=== PATIENT | female | born 1940 | race Caucasian/White ===

== ENCOUNTER 2018-10-23 05:09 | Emergency (ER) | payer OTHER ==
[~2018-10-23] VITALS: Ht 149.9 cm; Wt 38.6 kg
[~2018-10-23 05:09] MED LIST: BUTALB-ACETAMI1 EACH PO; ESTR2 PO; PRAV20 PO
[2018-10-23 06:30] LABS: BASOPHILS ABSOLUTE AUTO 0.04 K/mm3 (0.00-0.23); BASOPHILS PERCENT AUTO 0 % (0-2); EOSINOPHILS ABSOLUTE AUTO 0.02 K/mm3 (0.00-0.68); EOSINOPHILS PERCENT AUTO 0 % (0-6); Hematocrit 42.4 % (33.0-51.0); IMMATURE GRAN ABSOLUTE AUTO 0.04 K/mm3 (0.00-0.10); IMMATURE GRAN PERCENT AUTO 0 % (0-1); LYMPHOCYTES ABSOLUTE AUTO 0.41 K/mm3 (0.84-5.20); LYMPHOCYTES PERCENT AUTO 4 % (21-46); MONOCYTES ABSOLUTE AUTO 0.81 K/mm3 (0.16-1.47); MONOCYTES PERCENT AUTO 8 % (4-13); Mean Corpuscular HGB 30.3 pg (26.0-34.0); Mean Corpuscular Volume 92 fL (80-100); NEUTROPHILS ABSOLUTE AUTO 8.31 K/mm3 (1.96-9.15); NEUTROPHILS PERCENT AUTO 86 % (41-73); RDW Coefficient Variation 15.8 % (11.7-14.2); RDW Standard Deviation 53.2 fL (35.1-46.3); Red Blood Cell Count 4.62 M/mm3 (3.80-5.20); White Blood Cell Count 9.63 K/mm3 (4.00-11.30)
[2018-10-23 06:31] LABS: Mean Platelet Volume 12.2 fL (9.1-12.4); Platelet Count 181 K/mm3 (150-400)
[2018-10-23 06:53] LABS: Alanine Aminotransfer (ALT/SGP 16 U/L (12-78); Albumin, Blood 3.2 g/dL (3.4-5.0); Albumin/Globulin Ratio 0.9 (0.8-1.8); Alk Phos 77 U/L (50-136); Anion Gap 7 mmol/L (6-16); Aspartate Aminotrans (AST/SGOT 25 U/L (12-37); Bilirubin, Total 0.4 mg/dL (0.1-1.0); Blood Urea Nitrogen 18 mg/dL (8-24); Bun/Creatinine Ratio 21.4 (12.0-20.0); CO2, Blood 28 mmol/L (21-32); Calcium, Blood 8.1 mg/dL (8.5-10.1); Chloride, Blood 102 mmol/L (98-108); Creatinine, Blood 0.84 mg/dL (0.40-1.00); Globulin, Blood 3.5 g/dL (2.2-4.0); Glomerular Filtration Rate >60 (60-); Glucose, Blood 115 mg/dL (70-99); Potassium, Blood 3.7 mmol/L (3.5-5.5); Sodium, Blood 137 mmol/L (136-145); Total Protein, Blood 6.7 g/dL (6.4-8.2)
== END 2018-10-23 09:16 | disposition home or self-care (01) ==
LOC: ER 05:09
PROVIDERS: Emergency Medicine
DX: S00.01XA Abrasion of scalp, initial encounter (principal); E86.0 Dehydration; J10.1 Influenza due to other identified influenza virus with other respiratory manifestations; W06.XXXA Fall from bed, initial encounter; I10 Essential (primary) hypertension; J45.909 Unspecified asthma, uncomplicated; Z88.2 Allergy status to sulfonamides; Z88.5 Allergy status to narcotic agent; Z79.899 Other long term (current) drug therapy
CPT/HCPCS: 70450; 72125; 80053; 85025; 93005; 93010; 96360; 99284-25; J7030

== ENCOUNTER 2023-07-10 08:25 | Inpatient (IN) | payer OTHER ==
[~2023-07-10] VITALS: Ht 154.9 cm; Wt 43.7 kg
[2023-07-10 10:11] LABS: Hematocrit 39.5 % (33.0-51.0); Hemoglobin 12.9 g/dL (11.5-16.0); Mean Corpuscular HGB 30.4 pg (26.0-34.0); Mean Corpuscular HGB Conc 32.7 g/dL (31.5-36.5); Mean Corpuscular Volume 93 fL (80-100); Mean Platelet Volume 12.8 fL (9.1-12.4); Platelet Count 215 K/mm3 (150-400); RDW Coefficient Variation 15.5 % (11.7-14.2); RDW Standard Deviation 53.6 fL (35.1-46.3); Red Blood Cell Count 4.25 M/mm3 (3.80-5.20)
[2023-07-10 10:31] LABS: Bun/Creatinine Ratio 15.4 (12.0-20.0); Calcium, Blood 8.6 mg/dL (8.5-10.1); Creatinine, Blood 0.72 mg/dL (0.40-1.00); Potassium, Blood 5.6 mmol/L (3.5-5.5)
[2023-07-10 10:35] LABS: White Blood Cell Count 9.21 K/mm3 (4.00-11.30)
[2023-07-10 10:37] LABS: BAND PERCENT MAN 1 % (0-8); BASOPHILS PERCENT MAN 0 % (0-2); EOSINOPHILS ABSOLUTE MAN 0.09 K/mm3 (0.00-0.68); EOSINOPHILS PERCENT MAN 1 % (0-6); LYMPHOCYTES PERCENT MAN 12 % (21-46); MONOCYTES ABSOLUTE MAN 0.46 K/mm3 (0.16-1.47); MONOCYTES PERCENT MAN 5 % (4-13); NEUTROPHILS ABSOLUTE MAN 7.55 K/mm3 (1.96-9.15); SEG NEUTROPHILS PERCENT MAN 81 % (41-73); TOTAL CELLS COUNTED 100
[2023-07-10 10:46] LABS: Source, Urine Clean Catch
[2023-07-10 10:51] LABS: Appearance, Urine Clear (Clear); Bilirubin, Urine Neg (Neg); Blood, Urine Neg (Neg); Glucose Qualitative, Urine Neg (Neg); Ketones, Urine Neg (Neg); Leukocyte Esterase, Urine Neg (Neg); Nitrite, Urine Neg (Neg); Protein, Urine Neg (Neg); Specific Gravity, Urine 1.015 (1.003-1.022); Urobilinogen, Urine NORM (Normal)
[2023-07-10 10:57] LABS: Color, Urine Pale Yellow (P-Yellow)
[2023-07-10 12:49] LABS: Bicarbonate Venous 27.4 mmol/L (24.0-30.0); PCO2 Venous 50.7 mmHg (38-42); pH Blood Venous 7.38 (7.34-7.37)
[2023-07-10 13:35] LABS: Albumin, Blood 3.1 g/dL (3.4-5.0); Bilirubin, Direct 0.1 mg/dL (0.0-0.3); Bilirubin, Indirect 0.4 mg/dL (0.1-0.7); Bilirubin, Total 0.5 mg/dL (0.1-1.0); Globulin, Blood 3.1 g/dL (2.2-4.0); Total Protein, Blood 6.2 g/dL (6.4-8.2)
[2023-07-10 13:50] LABS: U Amphetamine Screen Not Detected; U Barbituate Screen Not Detected; U Benzodiazapine Screen Not Detected; U Buprenorphine Screen Not Detected; U Cannabinoids Screen Not Detected; U Cocaine Screen Not Detected; U Methadone Screen Not Detected; U Methamphetamine Screen Not Detected; U Opiates Screen Not Detected; U Oxycodone Screen Not Detected; U Phencyclidine Screen Not Detected
[2023-07-10] MEDS ORDERED: BUSP5 PO (15:09)
[2023-07-10] MEDS ORDERED: Bentyl10 MG PO (15:10)
[2023-07-10] MEDS ORDERED: LISI5 PO (15:11)
[2023-07-10] MEDS ORDERED: DRAMAMINE25 M1 PO (15:12)
[2023-07-10] MEDS ORDERED: PANT20 PO (15:13)
[2023-07-10] MEDS ORDERED: PRAVASTATIN SOD10 M1 PO (15:14)
[2023-07-10] MEDS ORDERED: SERT25 PO (15:15)
[2023-07-10 16:54] VITALS: BP 172/117
--- NOTE | 2023-07-10 18:43 | NUR ---
PT ARRIVED TO THE MEDICAL FLOOR FROM THE ER [facility]IA [facility]. PT WAS ABLE TO TRANSFER FROM THE [facility] TO THE [facility] WITH ASSISTANCE. PT DID REPORT DOME LIGHTHEADEDNESS WHEN GETTING UP. THE PT WAS ORIENTED TO THE ROOM LAYOUT AND CALL SYSTEM. THE PTS FAMILY WAS AT THE BEDSIDE. PT HAS A LEFT NKEE ABRASION WOUND WAS CLEANED AND DRESSING APPLIED. CALL LIGHT IN REACH. BED ALARM ON. BED IN THE LOW POSITION
[2023-07-10 19:19] VITALS: BP 159/76
--- NOTE | 2023-07-11 05:57 | NUR ---
Shift Summary Pt one assist to BR with FWW d/t weakness and potential dizzyness. She doesn't report any dizzyness or vertigo this shift. Pt hypertensive before shift change with systolic > 170. Her 1st vital check was 159/76. Pt AOx4 with some forgetfulness. Slept well t/o the night.
[2023-07-11 06:05] LABS: BASOPHILS ABSOLUTE AUTO 0.04 K/mm3 (0.00-0.23); BASOPHILS PERCENT AUTO 1 % (0-2); EOSINOPHILS ABSOLUTE AUTO 0.09 K/mm3 (0.00-0.68); EOSINOPHILS PERCENT AUTO 1 % (0-6); Hematocrit 39.5 % (33.0-51.0); Hemoglobin 13.1 g/dL (11.5-16.0); IMMATURE GRAN ABSOLUTE AUTO 0.04 K/mm3 (0.00-0.10); IMMATURE GRAN PERCENT AUTO 1 % (0-1); LYMPHOCYTES ABSOLUTE AUTO 1.12 K/mm3 (0.84-5.20); LYMPHOCYTES PERCENT AUTO 13 % (21-46); MONOCYTES ABSOLUTE AUTO 0.92 K/mm3 (0.16-1.47); MONOCYTES PERCENT AUTO 11 % (4-13); Mean Corpuscular HGB 30.9 pg (26.0-34.0); Mean Corpuscular HGB Conc 33.2 g/dL (31.5-36.5); Mean Corpuscular Volume 93 fL (80-100); Mean Platelet Volume 12.5 fL (9.1-12.4); NEUTROPHILS ABSOLUTE AUTO 6.46 K/mm3 (1.96-9.15); NEUTROPHILS PERCENT AUTO 75 % (41-73); Platelet Count 207 K/mm3 (150-400); RDW Coefficient Variation 15.1 % (11.7-14.2); RDW Standard Deviation 51.9 fL (35.1-46.3); Red Blood Cell Count 4.24 M/mm3 (3.80-5.20); White Blood Cell Count 8.67 K/mm3 (4.00-11.30)
[2023-07-11 06:11] VITALS: BP 174/73
[2023-07-11 06:43] LABS: Albumin, Blood 3.1 g/dL (3.4-5.0); Bilirubin, Total 0.7 mg/dL (0.1-1.0); Bun/Creatinine Ratio 18.9 (12.0-20.0); Calcium, Blood 8.7 mg/dL (8.5-10.1); Creatinine, Blood 0.79 mg/dL (0.40-1.00); Globulin, Blood 3.2 g/dL (2.2-4.0); Potassium, Blood 4.1 mmol/L (3.5-5.5); Total Protein, Blood 6.3 g/dL (6.4-8.2)
[2023-07-11 07:26] VITALS: BP 160/100
[2023-07-11] MEDS ORDERED: SYSTANE COMPLET10 ML IO (10:44)
[2023-07-11] MEDS ORDERED: ACET325 PO (10:45)
--- NOTE | 2023-07-11 11:11 | NUR ---
CALLED [facility]- PT LIVES AT [facility]. CALLED AND SPOKE TO STAFF ABOUT THE PT PRIOR COGNITIVE LEVEL PRIOR TO BEING HOSPITALIZED. PER REPORT FROM THE FACILITY THE PT WAS ALERT AND ORIENTED WITH A LITTLE FORGETFULLNESS. PT CAN CARRY ON CONVERSATIONS, KNOWS THE DATE, HER LOCATION, AND IS INDEPENDENT WITH HER DAILY LIVING NEEDS AT HER BASELINE. THIS WAS NOT THE CASE AFTER HER FALL FROM STANDING OUTSIDE. PER STAFF REPORT THE PT WAS SO CONFUSED POST FALL THEY "THOUGHT SHE HAD A STROKE OR SOMETHING." PT ANSWERED QUESTIONS APPROPRIATELY THIS MORNING, HER NAME AND DATE OF AND WHERE SHE IS. HOWEVER WHEN MORNING MEDS WERE GIVEN SHE SEEMED TO STRUGGLE MORE WITH HER D.O.B AND FORGOT SHE WAS HOLDING HER WATER, WHILE SHE WAS TAKING HER MEDS 2 AT A TIME. REQUESTED A LIST OF DIAGNOSIS AND ACTIVE MED LIST FROM THE FACILITY WELL, MED REC UPDATED WITH THE LIST OF WHAT SHE HAS BEEN TAKING AT THE FACILITY. PT DOES NOT KNOW WHERE SHE IS, HOW SHE GOT HERE, WHAT DAY OF THE WEEK OR WHAT MONTH IT IS. SHE IS SO MUCH MORE CONFUSED THAN HER BASELINE PER THIS REPORT FROM THE FACILITY.
[2023-07-11 14:57] VITALS: BP 152/79
[2023-07-11 19:15] VITALS: BP 134/65
--- NOTE | 2023-07-11 19:39 | NUR ---
SHIFT SUMMARY- PT ALERT AND ORIENTED TO SELF. SHE IS ALERT TO FAMILY, HOWEVER SHE DOES NOT SEEM TO KNOW BASIC FACTS ABOUT THEM SHE USUALLY DOES. PER THE FACILITY SHE LIVES AT AND HER FAMILY THE PT IS NOWHERE NEAR HER BASELINE COGNITION LEVEL. MD AWARE, PLAN FOR POSSIBLE MRI TOMORROW. BEDSIDE REPORT COMPLETED WITH NIGHT WILL[facility].
[2023-07-12 04:39] VITALS: BP 162/84
--- NOTE | 2023-07-12 06:39 | NUR ---
Shift Summary Pt AOx1 with poor recall. She was able to take her pills whole with water without aspiration. She is faily hypertensive this AM 162/84. Pt is one assist with FWW due to weakenss. Plan is for MRI and Echo today. Pt slept well through most of the night.
[2023-07-12 07:42] VITALS: BP 127/79
[2023-07-12 16:22] VITALS: BP 132/60
--- NOTE | 2023-07-12 18:14 | NUR ---
SHIFT SUMMARY SON BROUGHT IN POA PAPERWORK WELL ADVANCED DIRECTIVE, AD NEEDS COMPLETED BY DOC. PATIENT TO MRI AND CTA OF HEAD AND NECK THIS SHIFT. 1 ASSIST FOR TRANSFERS. STARTED IV R AC. FAMILY BROUGHT IN FOOD PATIENT IS VERY PARTICULAR IN HER PREFRENCES AND WILL REFUSE TO EAT. A/O X1. WILL CONTINUE TO MONITOR
[2023-07-12 19:46] VITALS: BP 158/97
[2023-07-13 05:58] VITALS: BP 165/80
[2023-07-13 06:16] LABS: BASOPHILS ABSOLUTE AUTO 0.07 K/mm3 (0.00-0.23); BASOPHILS PERCENT AUTO 1 % (0-2); EOSINOPHILS ABSOLUTE AUTO 0.23 K/mm3 (0.00-0.68); EOSINOPHILS PERCENT AUTO 3 % (0-6); Hemoglobin 13.2 g/dL (11.5-16.0); IMMATURE GRAN ABSOLUTE AUTO 0.06 K/mm3 (0.00-0.10); IMMATURE GRAN PERCENT AUTO 1 % (0-1); LYMPHOCYTES ABSOLUTE AUTO 1.47 K/mm3 (0.84-5.20); LYMPHOCYTES PERCENT AUTO 19 % (21-46); MONOCYTES ABSOLUTE AUTO 0.75 K/mm3 (0.16-1.47); MONOCYTES PERCENT AUTO 10 % (4-13); Mean Corpuscular HGB 30.7 pg (26.0-34.0); Mean Corpuscular Volume 93 fL (80-100); Mean Platelet Volume 12.8 fL (9.1-12.4); NEUTROPHILS ABSOLUTE AUTO 5.25 K/mm3 (1.96-9.15); NEUTROPHILS PERCENT AUTO 67 % (41-73); NRBC ABSOLUTE 0.02 K/mm3 (0.00-0.02); NRBC Auto 0.3 /100 WBC (0.0-0.2); Platelet Count 178 K/mm3 (150-400); RDW Coefficient Variation 15.3 % (11.7-14.2); White Blood Cell Count 7.83 K/mm3 (4.00-11.30)
--- NOTE | 2023-07-13 06:26 | NUR ---
SHIFT SUMMARY ASSUMED CARE, BEDSIDE REPORT DONE-PT LAYING IN BED DURING BEDSIDE ROUNDING, PT TOOK SCHEDULED MEDS WITHOUT C/O= PT SET OFF BED ALARM AND HAD HER GOWN OFF- PT HAD REMOVED IV BY ACCIDENT- REMOVED WITH INTROCANULA INTACT- NO S/S INECTION STARTED NEW IV LEFT FOREARM- PT TOLERATED WELL
[2023-07-13 06:27] LABS: Albumin/Globulin Ratio 0.9 (0.8-1.8); Bilirubin, Total 0.5 mg/dL (0.1-1.0); Bun/Creatinine Ratio 24.7 (12.0-20.0); Calcium, Blood 8.6 mg/dL (8.5-10.1); Creatinine, Blood 0.81 mg/dL (0.40-1.00); Globulin, Blood 3.2 g/dL (2.2-4.0); Potassium, Blood 4.3 mmol/L (3.5-5.5); Total Protein, Blood 6.2 g/dL (6.4-8.2)
[2023-07-13 07:12] VITALS: BP 189/79
--- NOTE | 2023-07-13 15:50 | NUR ---
SHIFT SUMMARY SON (POA) CHANGED CODE STATUS TO DNR THIS SHIFT. TOLERATED SHOWER WELL. NOT SHOWING INTEREST IN HOSPITAL PROVIDED MEALS, WILLING TO EAT POT[place] PROVIDED BY SON, SON STATES THIS IS THE MAJORITY OF HER CURRENT DIET.
[2023-07-13 17:15] VITALS: BP 153/70
[2023-07-13 20:08] VITALS: BP 151/78
[2023-07-14 04:22] VITALS: BP 148/64
[2023-07-14 06:16] LABS: BASOPHILS ABSOLUTE AUTO 0.05 K/mm3 (0.00-0.23); BASOPHILS PERCENT AUTO 1 % (0-2); EOSINOPHILS ABSOLUTE AUTO 0.26 K/mm3 (0.00-0.68); EOSINOPHILS PERCENT AUTO 4 % (0-6); Hematocrit 36.1 % (33.0-51.0); Hemoglobin 11.8 g/dL (11.5-16.0); IMMATURE GRAN ABSOLUTE AUTO 0.03 K/mm3 (0.00-0.10); IMMATURE GRAN PERCENT AUTO 0 % (0-1); LYMPHOCYTES ABSOLUTE AUTO 1.22 K/mm3 (0.84-5.20); LYMPHOCYTES PERCENT AUTO 17 % (21-46); MONOCYTES ABSOLUTE AUTO 0.67 K/mm3 (0.16-1.47); MONOCYTES PERCENT AUTO 9 % (4-13); Mean Corpuscular HGB 30.6 pg (26.0-34.0); Mean Corpuscular HGB Conc 32.7 g/dL (31.5-36.5); Mean Corpuscular Volume 94 fL (80-100); Mean Platelet Volume 12.8 fL (9.1-12.4); NEUTROPHILS ABSOLUTE AUTO 5.15 K/mm3 (1.96-9.15); NEUTROPHILS PERCENT AUTO 70 % (41-73); Platelet Count 183 K/mm3 (150-400); RDW Coefficient Variation 15.4 % (11.7-14.2); RDW Standard Deviation 53.2 fL (35.1-46.3); Red Blood Cell Count 3.86 M/mm3 (3.80-5.20); White Blood Cell Count 7.38 K/mm3 (4.00-11.30)
--- NOTE | 2023-07-14 06:32 | NUR ---
SHIFT SUMMARY PT LAYING IN BED WITH EYES CLOSED DURING BEDSIDE REPORT FROM JOSE LUIS- WOKE UP PT TO GIVE HS MEDS, PT TOOK 1 AT A TIME IN WATER- PT TOLERATED WELL- PT SLEPT T/O NIGHT, PT SAT OFF THE BED ALARM- ASSISTED PT TO BATHRROM, PT REPORTED FEELING DIZZY, PT REFUSED MECLIZINE D/T PT REPORTED DIZZINESS WENT AWAY ONCE RETURING TO THE BED- PT RETURNED TO LAYING IN BED WITH EYES CLOSED, BED LOW POSITION, BED ALARM IN PLACE
[2023-07-14 06:44] LABS: Albumin, Blood 2.8 g/dL (3.4-5.0); Albumin/Globulin Ratio 0.9 (0.8-1.8); Bilirubin, Total 0.4 mg/dL (0.1-1.0); Bun/Creatinine Ratio 29.3 (12.0-20.0); Calcium, Blood 8.6 mg/dL (8.5-10.1); Creatinine, Blood 0.72 mg/dL (0.40-1.00); Globulin, Blood 3.2 g/dL (2.2-4.0); Potassium, Blood 3.8 mmol/L (3.5-5.5)
[2023-07-14 07:05] VITALS: BP 175/73
[2023-07-14 16:17] VITALS: BP 168/69
--- NOTE | 2023-07-14 18:47 | NUR ---
SHIFT SUMMARY: NO ACUTE EVENTS. DENIED PAIN AND DIZZINESS, SAT IN CHAIR ALL AFTERNOON WITHOUT COMPLAINT. CARDIAC ECHO COMPLETED. APPETITE GOOD. WAS MORE CONFUSED THIS AFTERNOON, SETTING CHAIR ALARM OFF OFTEN. IS HOPING TO D/C TOMORROW.
[2023-07-14 21:25] VITALS: BP 159/99
[2023-07-15 05:06] VITALS: BP 174/65
--- NOTE | 2023-07-15 06:00 | NUR ---
SHIFT SUMMARY PT LAYING IN BED DURING BEDSIDE ROUNDS, PT UP TO THE RESTROOM, PT DENIED FEELING DIZZY, PT UP TO RESTROOM SEVERAL TIMES IN THE NIGHT, PT HAD INCREASED CONFUSION IN COMPARISON TO PREVIOUS HS SHIFTS, PT HARD TO REDIRECT WHEN AMBULATING TO THE BATHROOM- COVERED 2 OF THE SCABS ON LEFT KNEE D/T PT PICKING AT SCABS- PT SLEPT T/O HALF THE SHIFT, PT SET OFF BED ALARM T/O NIGHT WHEN NEEDED TO GO TO THE BATHROOM, BED LOW POSITION, CALL LIGHT WITHIN REACH, BED ALARM IN PLACE
[2023-07-15 07:11] VITALS: BP 146/87
[2023-07-15 15:23] VITALS: BP 147/81
--- NOTE | 2023-07-15 19:23 | NUR ---
SHIFT SUMMARY: NO ACUTE EVENTS. A&O TO SELF ONLY, REDIRECTABLE AT TIMES. DENIES DIZZINESS OR VERTIGO, WAS UP IN CHAIR MOST OF THE DAY, AMBULATED IN HALLWAY A FEW TIMES WITH FWW. TOLERATING DIET, APPETITE OK, NEEDS TO DRINK MORE. URINE IS CONCENTRATED AND MALODOROUS. DENIED PAIN. FAMILY VISITED THIS AFTERNOON. PLAN IS TO D/C TO [facility] ON FRIDAY.
[2023-07-15 19:55] VITALS: BP 133/95
--- NOTE | 2023-07-16 06:26 | NUR ---
SHIFT SUMMARY NOC PT A/O TO SELF. PLEASANTLY CONFUSED AND COOPERATIVE WITH CARE. NO ACUTE CHANGES TO REPORT. PT IS RESIDENT AT [facility], BUT WILL NEED HIGHER LEVEL OF CARE DUE TO DECLINING COGNITIVE FUNCTIONING. PT IS WAITING FOR PLACEMENT AT [facility]. PT IS CURRENTLY RESTING WITH BED ALARM ON, BED IN LOWEST POSITION, AND CALL LIGHT WITHIN REACH.
[2023-07-16 07:17] VITALS: BP 177/84
[2023-07-16 08:56] VITALS: BP 162/98
[2023-07-16 15:32] VITALS: BP 129/63
--- NOTE | 2023-07-16 19:06 | NUR ---
SHIFT SUMMARY PT ALERT TO SELF. PT MORE SOMNOLENT TODAY. NO C/O PAIN. PT WAS ABLE TO GET UP TO CHAIR FOR MEALS. BP ELEVATED IN MORNING. IMPROVED WITH SCHEDULED AM BP MEDICATION. DR BENSON STILL NOTIFIED OF ELEVATED BP. DAUGHTER AT BEDSIDE FOR SEVERAL HOURS. NO ACUTE CHANGES. BED ALARM ON DURING THE DAY. REPORT GIVEN TO ONCOMING NURSE.
[2023-07-16 20:05] VITALS: BP 155/80
--- NOTE | 2023-07-17 05:11 | NUR ---
REPORT RECEIVED VERIFIED A/O TO SELF , UP IN CHAIR PT VERY PLEASENT AND COOPERATIVE. THEATRE PROFESSOR ASSISTED TO BED, EVENING MEDS GIVEN, PT SWALLOW INTACT. NO CHANGE IN CONDITION PT SLEPT THROUGHOUT NIGHT NO ISSUES NOTED.
[2023-07-17 06:07] VITALS: BP 199/97
[2023-07-17 07:43] VITALS: BP 155/86
[2023-07-17 16:02] VITALS: BP 170/81
--- NOTE | 2023-07-17 17:58 | NUR ---
SHIFT SUMMARY PT AOX1-2, CAN ANSWER QUESTION APPROPRIATELY AT TIMES, ALSO CONFUSED. MEDICATED FOR NAUSEA THIS AM, PT STATED RELIEF. FAMILY AT THE BS TODAY. NO ACUTE EVENTS. SHE HAS BEEN SLEEPING OFF AN ON MOST OF THE SHIFT. PLAN IS FOR POSSIBLE DC TOMORROW. CALL LIGHT WITHIN REACH, BED IN THE LOWEST POSITION. WILL REPORT TO ONCOMING NURSE.
[2023-07-17 20:27] VITALS: BP 142/88
--- NOTE | 2023-07-17 22:12 | NUR ---
report received verified pt doing better today but still confused and pleasent. pt laying quietly no c/o pain no distress. meds swallowed whole and pt now sleeping.
[2023-07-18 05:18] VITALS: BP 167/84
[2023-07-18 07:58] VITALS: BP 177/91
[2023-07-18] MEDS ORDERED: CLOP75 PO (13:05)
[2023-07-18] MEDS ORDERED: FAMO20 PO (13:05)
[2023-07-18] MEDS ORDERED: DOCU100 PO (13:05)
[2023-07-18] MEDS ORDERED: SENN187 PO (13:06)
[2023-07-18] MEDS ORDERED: TRAZ50 PO (13:06)
--- NOTE | 2023-07-18 14:41 | NUR ---
SHIFT SUMMARY AND DISCHARGE PATIENT ALERT AND ITERACTIVE. PATIENT CONFUSED BUT PLEASANT. PATIENT INCONTINENT STOOL AND URINE. PATIENT HIGH RISK FOR FALLS. PATIENT DISCHARGING TO [facility] AND FAMILY TAKING PATIENT TO PCP APPOINTMENT TO TRANSITION TO HOSPICE. FAMILY TRANSPORTED PATIENT OUT IN PERSONAL WHEELCHAIR. PATIENT SHOWERED AFTER BEING FOUND INCONTINENT OF BOTH BOWEL AND BLADDER. PATIENT HAS POOR APPETITE AND ABLE TO SWALLOW PILLS BUT ONLY A FEW AT AT TIME. PATIENT NOT INTERESTED IN EATING HER MEALS. ATTEMPTED TO CALL REPORT TO [facility]. MESSAGE LEFT FOR NURSE TO CALL
== END 2023-07-18 15:08 | disposition home or self-care (01) | DRG 64 ==
LOC: ER 08:25 → MEDS 08:26 → ENPENDDIS 07-18 11:37 → MEDS 07-18 15:08
PROVIDERS: Internal Medicine; Student in an Organized Health Care Education/Training Program; ADMIT Family Medicine
DX: I63.10 Cerebral infarction due to embolism of unspecified precerebral artery (principal); I61.9 Nontraumatic intracerebral hemorrhage, unspecified; E85.4 Organ-limited amyloidosis; G46.4 Cerebellar stroke syndrome; R13.10 Dysphagia, unspecified; K21.9 Gastro-esophageal reflux disease without esophagitis; I10 Essential (primary) hypertension; R55 Syncope and collapse; G93.9 Disorder of brain, unspecified; S00.03XA Contusion of scalp, initial encounter; W18.30XA Fall on same level, unspecified, initial encounter; F41.9 Anxiety disorder, unspecified; K59.09 Other constipation; R42 Dizziness and giddiness; E78.5 Hyperlipidemia, unspecified; F03.90 Unspecified dementia, unspecified severity, without behavioral disturbance, psychotic disturbance, mood disturbance, and anxiety; I68.0 Cerebral amyloid angiopathy; J45.909 Unspecified asthma, uncomplicated; Y93.K1 Activity, walking an animal; M19.042 Primary osteoarthritis, left hand; M19.041 Primary osteoarthritis, right hand; R41.0 Disorientation, unspecified
CPT/HCPCS: 36415; 70450; 70496; 70498; 70551; 80048; 80053; 80076; 81003; 82140; 82803; 85025; 93306; 97110; 97116; 97162; 97165; 97530; 97535; 99285-25; A9270; G0378; Q9967